=== PATIENT | female | born 1995 | race Hispanic/Latino ===

== ENCOUNTER 2018-07-28 09:46 | Emergency (ER) | payer SELFPAY ==
[2018-07-28 10:49] LABS: #Eosinphils 0.1 thou/uL (0.0-0.7); #Lymphocytes 1.4 thou/uL (1.20-3.40); #Monocytes 0.3 thou/uL (0.11-0.59); #Neutrophils 4.4 thou/uL (1.40-6.50); %Basophils 0.4 % (0.0-1.0); %Eosinophils 1.9 % (0.0-10.0); %Lymphocytes 22.1 % (21.0-51.0); %Monocytes 5.5 % (0.0-10.0); %Neutrophils 70.1 % (42.0-75.0); Hemoglobin 13.1 g/dL (12.0-16.0); Mean Corpuscular HGB CONC 32.1 g/dL (32.0-36.0); Mean Corpuscular Hemoglobin 28.6 pg (27.0-31.0); Platelet Count 192 thou/uL (130-400); RBC Distribution Width 12.1 % (11.5-14.5); Red Blood Cell (RBC) Count 4.57 mill/uL (4.20-5.40); White Blood Cell (WBC) Count 6.3 thou/uL (4.8-10.8)
[2018-07-28 10:52] LABS: Bilirubin Negative (Negative); Blood, Urine Trace (Negative); Glucose, Urine (Dipstick) Negative (Negative); Leukocyte Negative (Negative); Nitrite Negative (Negative); Protein, Urine (Dipstick) Negative (Neg-Trace); Specific Gravity, Urine 1.025 (1.005-1.030); Urobilinogen 0.2 mg/dL (0.2-1.0)
[2018-07-28 10:53] LABS: Clarity Clear (Clear)
[2018-07-28 10:56] LABS: BHCG - Serum Negative (NEGATIVE); Pregs Control Background? CLEAR/WHITE (CLR/WHITE); Pregs Control Bar Appear? YES (CONTROL BAR)
[2018-07-28 11:00] LABS: ALT (SGPT) 16 U/L (8-55); AST (SGOT) 18 U/L (5-34); Albumin 4.4 g/dL (3.5-5.0); Alkaline Phosphatase 77 U/L (40-150); Anion Gap 10 mmol/L (10-20); BUN (Urea Nitrogen) 13 mg/dL (7.0-18.7); Bilirubin, Total 0.4 mg/dL (0.2-1.2); Calc. Creatinine Clearance 0 mL/min (70-130); Calcium 9.5 mg/dL (7.8-10.44); Carbon Dioxide 27 mmol/L (22-29); Chloride 105 mmol/L (98-107); Estimated GFR-MDRD Greater than 90; Globulin 2.9 g/dL (2.4-3.5); Glucose 100 mg/dL (70-105); Potassium 3.5 mmol/L (3.5-5.1); Protein, Total 7.3 g/dL (6.0-8.3); Sodium 138 mmol/L (136-145)
[2018-07-28 11:01] LABS: Bacteria/HPF None Seen HPF (None Seen); Hyaline Casts/LPF 0-3 HYALINE CAST LPF (0-3 Hyaline); RBC/HPF 0-3 HPF (0-3); Squamous Epithelial 0-3 HPF (0-3)
[2018-07-28] MEDS ORDERED: Ondansetron PF 4 MG/2 ML Vial ONE (12:24)
[2018-07-28] MEDS ORDERED: Meclizine HCl 25 MG TAB ONE (13:08)
[2018-07-28] MEDS ORDERED: diphenhydrAMINE 50 MG/ML VIAL ONE (15:05)
[2018-07-28] MEDS ORDERED: Ketorolac Tromethamine 30 MG/ML VIAL ONE (15:05)
[2018-07-28] MEDS ORDERED: Metoclopramide HCl 10 MG/2 ML VIAL ONE (15:05)
[2018-07-28] MEDS ORDERED: Diazepam 5 MG TAB ONE (16:05)
== END 2018-07-28 16:24 | disposition home or self-care (01) ==
LOC: ERS 09:46
DX: R11.2 Nausea with vomiting, unspecified (principal); R42 Dizziness and giddiness
CPT/HCPCS: 36415; 80053; 81003; 81015; 84703; 85025; 93005; 96361; 96365; 96375; J1200; J1885; J2405; J2765

== ENCOUNTER 2018-07-29 17:30 | Observation (INO) | payer SELFPAY ==
[2018-07-29] MEDS ORDERED: diphenhydrAMINE 50 MG/ML VIAL ONE (19:54)
[2018-07-29] MEDS ORDERED: Acetaminophen 500 MG TAB ONE (19:54)
[2018-07-29] MEDS ORDERED: Metoclopramide HCl 10 MG/2 ML VIAL ONE (19:54)
--- NOTE | 2018-07-29 19:54 | CT ---
CT HEAD WITHOUT CONTRAST: 07/29/18 Multiple axial tomograms obtained through the head without IV enhancement. INDICATIONS: Dizziness. Head pain. Ventricles have normal size and position. No evidence of intracranial mass or hemorrhage. Sinuses and mastoids are well aerated. There is a focal mucous retention cyst in the right sphenoid sinus measur ing approximately 1.0 cm. IMPRESSION: No acute intracranial abnormality. Mucous retention cyst in the right sphenoid sinus. POS: MIGUE
--- NOTE | 2018-07-29 20:39 | PDOC.FPRHP ---
- History of Present Illness Chief Complaint: off balance, dizzy History of Present Illness: Patient is a previously healthy 23 yo F who presents with dizziness and feeling "off balance" starting yesterday. Patient was seen in our ED yesterday and sent home with meclizine, presents again because her headache, dizziness, and nausea/ vomiting have not resolved. Pt reports frontal pressure headache, vertigo with movement, nausea and vomiting. She also reports photophobia. Denies previous history of migraines. Denies tinnitus, decrease hearing, eye or ear pain. In the ED, Head CT revealed only sphenoid sinus cyst. She was given benadryl, tylenol, reglan, and 1L NS. - Allergies/Adverse Reactions Allergies Allergy/AdvReac Type Severity Reaction Status Date / Time tramadol Allergy Verified 07/29/18 22:53 - History PMHx: none, IUD for control PSHx: none FHx: No cardiac disease. DM mGM, pGF; Cancer - none in immediate family; HTN mGM Social: no tobacco, alcohol, or drug use - Review of Systems General: denies: fever/chills, weight/appetite/sleep changes Eyes: denies: eye pain, vision changes ENT: denies: nasal congestion, rhinorrhea Respiratory: reports: shortness of breath. denies: cough, congestion Cardiovascular: denies: chest pain, palpitation, edema Gastrointestinal: reports: nausea, vomiting. denies: diarrhea, constipation, abdominal pain, GI bleeding Genitourinary: denies: dysuria, other (hematuria) Skin: denies: rashes, lesions Musculoskeletal: denies: pain, tenderness Neurological: denies: numbness, weakness Psychological: denies: anxiety, depression - Vital signs BP: [132/82] HR: [77] RR: [17] Tmax: [98.6] Pox: [98]% on [RA] Wt: [72.57 kg] - Physical Exam Constitutional: NAD, awake, alert and oriented HEENT: normocephalic and atraumatic, PERRLA, EOMI, conjunctiva clear, MMM Neck: supple -Neck: +LAD cervical Heart: RRR, normal S1/S2, no murmurs/rubs/gallops, pulses present, no edema Lungs: CTAB, no respiratory distress, no wheezing Abdomen: soft, non-tender, bowel sounds present, no masses/distention Musculoskeletal: normal structure, normal tone, ROM grossly normal Neurological: no focal deficit, CN II-XII intact, other (Lex-Hallpike negative for nystagmus, however pt reports worsened dizziness with maneuver L>R. Eppley maneuver improved symptoms.) Skin: no rash/lesions, good turgor, capillary refill <2 seconds Heme/Lymphatic: no unusual bruising or bleeding, no purpura, no petechia Psychiatric: normal mood and affect, good judgment and insight, intact recent and remote memory FMR H&P: Results - Radiology Interpretation CT scan - head Status: image reviewed by me, report reviewed by me Additional comment: neg, sphenoid sinus cyst FMR H&P: A/P - Problem List (1) Intractable nausea and vomiting Current Visit: Yes Status: Acute Code(s): R11.2 - NAUSEA WITH VOMITING, UNSPECIFIED (2) BPPV (benign paroxysmal positional vertigo) Current Visit: Yes Status: Acute Code(s): H81.10 - BENIGN PAROXYSMAL VERTIGO , UNSPECIFIED EAR - Plan Intractable Nausea and Vomiting 2/2 BPPV - CBC/CMP Normal yesterday - CT head - neg, sphenoid cyst - [place] Hallpike +for vertigo but no nystagmus, vertigo improved with Eppley maneuver - 1L NS in ED, Gave dose reglan and Benadryl - No hx migraines - No concerning symptoms of tinnitus/decreased hearing - Continue Tylenol, meclizine, PRN zofran - Continue Epely Maneuvers BID. Code status: Full PCP: Maribel DVT ppx: none GI ppx: none Dispo: medical obs, LOS <2 midnights FMR H&P: Upper Level - Pertinent history 23 yo WF PMH nothing. Presents with 2-3 day history of dizziness. Was seen in ER yesterday and started on meclizine with minimal resolution of symptoms. States her vertigo feels like room is spinning. States movement of her head makes symptoms work. Also reports concurrent JENSEN with light sensitivity. ER: CT brain, Reglan, APAP, NS 1L, benadryl - Pertinent findings Vitals WNL GEN: NAD ENT: MMM, no erythema CV: RRR, no murmur Lung: CTA-B Neuro: CN 2-12 intact. Normal sensation, normal strength. Positive Lex-Halpike maneuver to left with relief with Earnest maneuver. CT-Brain: 1 cm sphenoid mucous cyst. - Plan Date/Time: 07/29/182038 I, Escobar Lazo MD, have evaluated this patient and agree with findings/plan as outlined by training intern resident. Pertinent changes/additions are listed here. 1. Intractable Vertigo and Nausea 2/2 BPPV: Continue Epely Maneuvers BID. PRN zofran and meclizine available. 2. Tension JENSEN: Will add steroids or NSAIDs if no improvement. 3. Diet: regular 4. PPx: Fall 5. CODE: FULL Dispo: obs, medical, <[address] Vuong. Addendum - Attending - Attending Attestation Date/Time: 07/29/182336 I personally evaluated the patient and discussed the management with Dr. Maryanne Helton I agree with the History, Examination, Assessment and Plan documented above with any addition or exceptions noted below- 23 yo F with no significant PMH presents with 2 day history of dizziness. Was seen in ER yesterday and started on meclizine with minimal resolution of symptoms. States her vertigo feels like room is spinning to the left. States movement of her head makes symptoms work. Also reports concurrent JENSEN with light sensitivity. PMH/PSH/ALl/Meds reviewed and agree with resident's documentation. Afebrile BP 133/77 P61 RR16 100%RA Exam repeated by me and agree with resident's findings. Labs: (07/28) - WBC=6.3, H/H=13.1/40.7, Uxz=399, Dh=381, K=3.5, RR=543, CO2=27, BUN/Cr=13/0.71, beta HCG (-). CT brain (-). A/P: 1) Vertigo secondary to BPPV - place in obs. Continue IVF; meclizine prn. Plan for Earnest manuver in AM. 2) JENSEN - given reglan and benadryl in ER with improvement. tylenol/NSAIDs prn.
[2018-07-29] MEDS ORDERED: Meclizine HCl 25 MG TAB PO PRN (22:31)
[2018-07-29 22:34] VITALS: BMI 27.3
[2018-07-29] MEDS ORDERED: Acetaminophen 650 MG Suppository PR PRN (22:44)
[2018-07-29] MEDS: Acetaminophen 325 MG TAB PO PRN (23:21)
--- NOTE | 2018-07-30 05:16 | PDOC.FM ---
- Subjective Subjective: Patient reports feeling slightly better this AM. States that her dizziness and N /V have improved since admission. No vomiting since getting to the floor. Reports that she woke up with a slight headache but denies blurry/spotty vision , chest pain, SOB, or diarrhea. - Objective MAR Reviewed: Yes Vital Signs & Weight: Vital Signs (12 hours) Temp Pulse Resp BP BP BP Pulse Ox 07/30/18 03:59 98.1 F 66 16 105/69 07/30/18 00:07 97.5 F L 72 20 128/79 99 07/29/18 22:44 97.9 F 61 16 133/77 100 Weight Weight 72.263 kg I&O: 07/28/18 07/29/18 07/30/18 06:59 06:59 06:59 Intake Total 240 Balance 240 Phys Exam - Physical Examination Constitutional: NAD HEENT: moist MMs Neck: supple, full ROM Respiratory: no wheezing, no rales, no rhonchi, clear to auscultation bilateral Cardiovascular: RRR, no significant murmur Gastrointestinal: soft, non-tender, positive bowel sounds Neurological: non-focal, moves all 4 limbs Psychiatric: normal affect, A&O x 3 Skin: no rash, normal turgor Dx/Plan (1) BPPV (benign paroxysmal positional vertigo) Code(s): H81.10 - BENIGN PAROXYSMAL VERTIGO, UNSPECIFIED EAR Status: Acute (2) Intractable nausea and vomiting Code(s): R11.2 - NAUSEA WITH VOMITING, UNSPECIFIED Status: Acute - Plan Plan: Intractable Nausea and Vomiting 2/2 BPPV - CBC/CMP normal yesterday. - CT head - neg, only showed a sphenoid cyst. No alarm symptoms of tinnitus/ decreased hearing. - [place] Hallpike + for vertigo but no nystagmus noted. However, vertigo improved with Earnest maneuver. - 1L NS in ED as well as a dose of reglan and Benadryl. - Will continue Tylenol, meclizine, & PRN zofran for symptomatic relief. - Will continue Earnest Maneuvers BID & educate on modified Earnest and bradt- daroff maneuvers to do at home. - Will instruct to follow-up with ENT as an outpatient for further management. Code status: Full PCP: Maribel DVT ppx: none GI ppx: none Dispo: Likely d/c later today w/ close follow-up w/ ENT.
[2018-07-30] MEDS: Acetaminophen 325 MG TAB PO PRN (06:14)
[2018-07-30] MEDS ORDERED: Ondansetron ORAL SOLN. 4 MG/5 ML UDCUP PO PRN (08:43)
[2018-07-30] MEDS ORDERED: Ondansetron PF 4 MG/2 ML Vial IVP PRN (08:43)
[2018-07-30] MEDS ORDERED: Metoclopramide HCl 10 MG/2 ML VIAL IVP SCH (08:45)
[2018-07-30] MEDS ORDERED: diphenhydrAMINE 50 MG/ML VIAL IVP SCH (08:45)
[2018-07-30 13:06] VITALS: BP 122/57; TEMP 97.3
--- NOTE | 2018-07-31 08:23 | PRG ---
DATE OF SERVICE: 07/30/2018 Ms. Fu is a 23-year-old lady, who was admitted with benign positional vertigo that was not responding to outpatient management. She did have a brain CT done initially in the ER. CT shows no acute intracranial abnormality. She did have a mucous retention cyst in the right sphenoid sinus. Her labs done through the ER were all normal. This morning, she feels somewhat improved after having had an Earnest maneuver yesterday. She can likely be discharged later today. Job ID: [id number]
--- NOTE | 2018-07-31 11:42 | DIS ---
DATE OF ADMISSION: 07/29/2018 DATE OF DISCHARGE: 07/30/2018 RESIDENT: Mariangel Lowry MD PROCEDURES: Brain CT on 07/29/2018, which noted no acute intracranial abnormality. PRIMARY DIAGNOSIS: Intractable nausea and vomiting secondary to suspected benign positional paroxysmal vertigo. SECONDARY DIAGNOSIS: None. DISCHARGE MEDICATIONS: 1. Acetaminophen 650 mg p.o. every 4 hours p.r.n. for pain. 2. Meclizine 25 mg p.o. every 8 hours p.r.n. 3. Zofran 8 mg p.o. every 4 hours p.r.n. DISCONTINUED MEDICATIONS: None. HOSPITAL COURSE: The patient is a 23-year-old female with no significant past medical history who presented to the emergency department with a chief complaint of dizziness and feeling off balance that began the day prior to presentation. Of note, the patient was seen and evaluated in the [facility] the day before her admission date and sent home on p.o. meclizine. However, the patient states that her nausea and vomiting persisted and reported associated headache and dizziness as well, so she returned to the emergency department for a 2nd evaluation. The patient endorsed vertigo with movement as well as photophobia but denied any previous history of migraines as well as any tinnitus, decreased hearing, or eye or ear pain. Also of note, the patient had routine lab work obtained the night prior to her admission date, all of which was normal. Therefore, no repeat lab work was obtained during her hospital stay. However, due to her complaints of headache, a brain CT was obtained, which revealed only a sphenoid sinus cyst. On physical exam, it was noted that the Lex- Hallpike maneuver was negative for nystagmus, but the Earnest maneuver did improve the patient's dizziness. The patient was given Benadryl, Tylenol, Reglan, and 1 L of NS in the emergency department and admitted for close observation overnight for intractable nausea and vomiting. The patient was continued on Zofran and meclizine overnight and by the following morning, the patient reported some improvement in her dizziness and was cleared for discharge home as any potentially life-threatening condition that could have been contributing to her dizziness had been effectively ruled out. The patient was instructed to follow up with her primary care physician and recommended to also see an Ear, Nose, and Throat specialist for evaluation of her dizziness should her symptoms persist. DISPOSITION: Stable. DISCHARGE INSTRUCTIONS: 1. Location: Home. 2. Diet: Regular diet. 3. Activity: Activity as tolerated, no restrictions. 4. Followup. The patient was instructed to follow up with her primary care physician, Dr. Deniz López within one week of discharge. It was also recommended that the patient be seen by an Ear, Nose, and Throat doctor if her dizziness, nausea, and vomiting persist despite conservative treatment. Job ID: [id number] MTDD
== END 2018-07-30 14:48 | disposition home or self-care (01) ==
LOC: ERS 17:30 → ONC 22:11
PROVIDERS: ADMIT Family Medicine; ATTEND Family Medicine
DX: R42 Dizziness and giddiness (principal); R11.2 Nausea with vomiting, unspecified
CPT/HCPCS: 70450; 96360; 96375; 96376; G0378; J1200; J2405; J2765

== ENCOUNTER 2019-06-01 07:53 | Emergency (ER) | payer SELFPAY ==
[2019-06-01 08:59] LABS: #Eosinphils 0.1 thou/uL (0.0-0.7); #Lymphocytes 1.1 thou/uL (1.20-3.40); #Monocytes 0.5 thou/uL (0.11-0.59); #Neutrophils 1.6 thou/uL (1.40-6.50); %Basophils 0.3 % (0.0-1.0); %Eosinophils 2.2 % (0.0-10.0); %Lymphocytes 34.2 % (21.0-51.0); %Monocytes 13.8 % (0.0-10.0); %Neutrophils 49.5 % (42.0-75.0); Hemoglobin 12.7 g/dL (12.0-16.0); Mean Corpuscular HGB CONC 34.1 g/dL (32.0-36.0); Mean Corpuscular Hemoglobin 30.6 pg (27.0-31.0); Mean Corpuscular Volume 89.7 fL (78.0-98.0); Mean Platelet Volume 8.7 fL (7.4-10.4); Platelet Count 123 thou/uL (130-400); RBC Distribution Width 11.4 % (11.5-14.5); Red Blood Cell (RBC) Count 4.16 mill/uL (4.20-5.40); White Blood Cell (WBC) Count 3.3 thou/uL (4.8-10.8)
[2019-06-01 10:03] LABS: Bilirubin Negative (Negative); Blood, Urine Negative (Negative); Clarity Clear (Clear); Glucose, Urine (Dipstick) 100 mg/dL (Negative); Leukocyte Negative Leu/uL (Negative); Nitrite Negative (Negative); Protein, Urine (Dipstick) Negative (Neg-Trace); Urobilinogen Normal mg/dL (Less than 2)
--- NOTE | 2019-06-01 10:07 | ULT ---
TRANSABDOMINAL AND TRANSVAGINAL PELVIC ULTRASOUND WITH BENAVIDES-SCALE AND COLOR-FLOW AND SPECTRAL DOPPLER IMAGING: HISTORY: A 24-year-old female with vaginal bleeding. FINDINGS: The uterus measures 9 x 4.4 x 6.1 cm. A single intrauterine gestational sac is seen with measurements corresponding to an estimated gestational age of 6 weeks 1 day. The gestational sac diameter measure s 1.31 cm and the yolk sac diameter measures 0.31 cm. No heart tones or pole are seen. The ovaries have a normal appearance and demonstrate flow. There is a small amount of free fluid in t he left adnexal region. IMPRESSION: Single intrauterine gestation of 6 weeks' 1 day estimated gestational age but no evidence of po le or heart tones. RECOMMENDATIONS: Correlation with serial serum beta hCG levels and follow-up ultrasound should be performed. POS: STONEY
== END 2019-06-01 10:52 | disposition home or self-care (01) ==
LOC: ERS 07:53
DX: O20.0 Threatened abortion (principal); Z3A.01 Less than 8 weeks gestation of pregnancy
CPT/HCPCS: 36415; 76856; 81003; 84702; 85025; 86900; 86901